=== PATIENT | female | born 1995 | race African-American/Black ===

== ENCOUNTER 2019-09-16 13:06 | Emergency (ER) | payer OTHER ==
[~2019-09-16] VITALS: Ht 165.1 cm; Wt 79.0 kg
[2019-09-16] MEDS: SODIUM CHLORIDE 0.9% 1,000 ML IV ONE (13:50)
[2019-09-16 14:19] LABS: BASOPHILS % 0.5 % (0.0-2.0); EOSINOPHILS % 2.7 % (0.0-5.0); HEMOGLOBIN. 13.3 g/dL (12.0-16.0); LYMPHOCYTES % 19.9 % (20.0-50.0); MEAN CORPUSCULAR VOLUME 84.7 fL (81.0-99.0); MEAN PLATELET VOLUME 8.8 fl (7.4-10.4); MONOCYTES % 6.3 % (2.0-8.0); NEUTROPHILS % 70.6 % (40.0-76.0); PLATELET 214 x1000/uL (130-400); RED CELL DISTRIBUTION WIDTH 14.7 % (11.6-14.6)
[2019-09-16 14:30] LABS: CHLORIDE 105 mEq/L (98-107)
[2019-09-16 14:35] LABS: *BENZODIAZEPINES SCREEN URINE NEGATIVE (NEGATIVE); *COCAINE SCREEN URINE NEGATIVE (NEGATIVE)
[2019-09-16 14:36] LABS: CANNABINOID URINE SCREEN NEGATIVE (NEGATIVE); METHADONE URINE SCREEN NEGATIVE (NEGATIVE); OPIATES URINE SCREEN NEGATIVE (NEGATIVE); PHENCYCLIDINE URINE SCREEN NEGATIVE (NEGATIVE)
[2019-09-16 14:38] LABS: *AMPHETAMINES SCREEN URINE NEGATIVE (NEGATIVE); *BARBITURATES SCREEN URINE NEGATIVE (NEGATIVE)
[2019-09-16 14:41] LABS: HCG SCREEN NEGATIVE
[2019-09-16] MEDS: IBUPROFEN 400MG TABLET PO NR (15:30)
[2019-09-16] MEDS: POTASSIUM CHLORIDE 20MEQ TABLET SR PO ONE (15:31)
[2019-09-16 16:45] VITALS: BP 121/72
== END 2019-09-16 17:04 | disposition home or self-care (01) ==
LOC: ER 13:45
DX: R07.89 Other chest pain (principal); E87.6 Hypokalemia
CPT/HCPCS: 36415; 71045; 80053; 80305; 81025; 83880; 84484; 84703; 85025; 93005; 99284; J7030